=== PATIENT | male | born 1965 | race Caucasian/White ===

== ENCOUNTER → 2017-02-24 | Outpatient (CLI) | payer OTHER ==
[~2017-02-24] MED LIST: METOPROLOL25 MG PO; PREDNISONE 20MG20 MG PO
--- NOTE | 2017-02-27 16:14 | RADIOLOGY REPORT PS360 ---
History and Indications: Hypertension, tobacco use, family history and chest pain. Procedure: Patient exercised on Sorin protocol 9 minutes, resting heart rate was 74 bpm, resting blood pressure 153/100, with exercise maximum heart rate achieved was 1 60 bpm which is equal to 95% of the maximum predicted heart rate and a blood pressure was 180/90. Test was stopped due to leg fatigue patient denied any complained of chest pain. Patient has good exercise capacity achieved 10.1mets of workload on treadmill the blood pressure response to exercise was adequate. Electrocardiogram: Resting electrocardiogram showed sinus rhythm nonspecific ST-T changes, with exercise there is less than 1.[address] segment depression noted from the baseline EKG. The EKG portion of the exercise Myoview is nondiagnostic secondary to baseline abnormal EKG. Cardiac stress and resting SPECT images: Cardiac stress and the rest images were obtained using technetium 99 Myoview 10.1 mCi at rest and 31.3 mCi at stress, gated SPECT further analysis of segmental wall motion and calculation of the ejection fraction also done. Cardiac stress and the rest images show uniform myocardial activity without any segmental perfusion abnormality, computer derived ejection fraction is 65% with no obvious regional wall motion abnormality, right ventricle is mildly enlarged with normal contractility. Conclusion: 1. The EKG portion of the exercise Myoview is nondiagnostic secondary to baseline abnormal EKG. Patient has good exercise capacity [id number] of workload on treadmill, the blood pressure response to exercise was adequate. 2. No obvious scintigraphic evidence of reversible ischemia seen at this level of exercise, computer derived ejection fraction is 65% with no obvious regional wall motion abnormality, right ventricle is mildly enlarged with normal contractility.
== END ==
LOC: RAD 06:19
DX: R07.89 Other chest pain (principal)
CPT/HCPCS: A9502